=== PATIENT | male | born 1955 | race Caucasian/White ===

== ENCOUNTER 2020-01-12 17:38 | Observation (INO) | payer OTHER ==
[~2020-01-12] VITALS: Ht 170.2 cm; Wt 90.7 kg
[2020-01-12 17:40] VITALS: BP 129/79
[2020-01-12 17:41] VITALS: BP 129/79
[2020-01-12 18:32] LABS: BASOPHILS % (AUTO) 0.9 % (0.0-2.0); EOSINOPHILS # (AUTO) 0.1 K/uL (0-0.4); EOSINOPHILS % (AUTO) 3.3 % (0.0-4.0); HEMATOCRIT 25.5 % (36-52); HEMOGLOBIN 8.4 g/dL (12.0-18.0); LYMPHOCYTES # (AUTO) 0.4 K/uL (2.0-11.5); LYMPHOCYTES % (AUTO) 14.5 % (20.5-51.1); MEAN CORPUSCULAR HEMOGLOBIN 34 pg (27-31); MEAN CORPUSCULAR HGB CONC 33 g/dL (33-37); MEAN CORPUSCULAR VOLUME 103.8 fL (80-94); MONOCYTES # (AUTO) 0.2 K/uL (0.8-1.0); NEUTROPHILS # (AUTO) 2.4 K/uL (1.8-7.7); NEUTROPHILS % (AUTO) 76.3 % (42.2-75.2); PLATELET COUNT (AUTO) 164 K/uL (140-450); RED BLOOD CELL COUNT(AUTO) 2.45 MIL/uL (4.20-6.10); RED CELL DISTRIBUTION WIDTH 17.3 % (11.6-13.7); WHITE BLOOD COUNT (AUTO) 3.1 K/uL (4.8-10.8)
[2020-01-12] MEDS ORDERED: ACET-2619 GT (18:45)
[2020-01-12] MEDS ORDERED: KEP500L GT (18:45)
[2020-01-12] MEDS ORDERED: PRO5 GT (18:45)
[2020-01-12] MEDS ORDERED: [UNRECOGNIZED DRUG - CODE] GT (18:45)
[2020-01-12] MEDS ORDERED: CINA60TA1 GT (18:45)
[2020-01-12] MEDS ORDERED: TOP100 GT (18:45)
[2020-01-12] MEDS ORDERED: FOLI1TAB90 GT (18:47)
[2020-01-12] MEDS ORDERED: PHEN125S GT (18:47)
[2020-01-12 18:50] LABS: ALBUMIN 2.6 g/dL (3.4-5.0); ANION GAP 11.2 (8-16); CARBON DIOXIDE 30.2 mmol/L (21-32); CREATININE 1.7 mg/dL (0.6-1.3); POTASSIUM 3.4 mmol/L (3.5-5.1); TOTAL BILIRUBIN 0.5 mg/dL (0.0-1.0)
[2020-01-12] MEDS ORDERED: LISI5TAB18 GT (18:55)
[2020-01-12] MEDS ORDERED: ONDA4TAB GT (18:55)
[2020-01-12] MEDS ORDERED: OMEP20TC GT (18:55)
[2020-01-12] MEDS ORDERED: ERGO2000 GT (18:55)
[2020-01-12] MEDS ORDERED: POTA10TE30 GT (18:55)
[2020-01-12] MEDS ORDERED: VITA1TAB44 GT (18:55)
[2020-01-12] MEDS ORDERED: ALBU0.0912 IH (18:56)
[2020-01-12 18:57] LABS: PROTHROMBIN TIME 11.7 secs (10.8-13.4)
[2020-01-12 19:33] VITALS: BP 112/71
[2020-01-12] MEDS ORDERED: LACTATED RINGERS 1,000 ML IV SCH (20:27)
[2020-01-12] MEDS ORDERED: ONDANSETRON 4 MG/2 ML VIAL IVP PRN (20:30)
[2020-01-12] MEDS ORDERED: ALBUTEROL 0.083% 2.5 MG/3 ML NEBU INH PRN (20:30)
[2020-01-12] MEDS ORDERED: ACETAMINOPHEN 325 MG TAB PO PRN (20:30)
[2020-01-12] MEDS ORDERED: MORPHINE SULFATE 2 MG/ML SYR IVP PRN (20:30)
[2020-01-12] MEDS ORDERED: LORazepam 2 MG/ML VIAL IVP PRN (20:30)
[2020-01-12] MEDS ORDERED: POTASSIUM CHLORIDE 40 MEQ, LIDOCAINE MPF 1% 25 MG in NACL 0.9% 250 ML IV ONE (20:35)
[2020-01-12] MEDS ORDERED: PHENYTOIN GT SCH (21:00)
[2020-01-12 21:30] VITALS: BP 141/80
[2020-01-12] MEDS ORDERED: HYDRAGUARD CREAM TP PRN (22:35)
[2020-01-12] MEDS ORDERED: KCL 20 MEQ/WATER INJ PREMIX 200 ML IV ONE (22:35)
[2020-01-12] MEDS: LACTATED RINGERS 1,000 ML IV SCH (23:10)
[2020-01-12] MEDS: CINACALCET 30 MG TAB GT SCH (23:45)
[2020-01-12] MEDS: TOPIRAMATE 100 MG TAB GT SCH (23:45)
[2020-01-13] VITALS: BP 119/77
[2020-01-13 04:00] VITALS: BP 129/71
[2020-01-13 06:48] LABS: BASOPHILS # (AUTO) 0.1 K/uL (0.00-0.22); EOSINOPHILS # (AUTO) 0.1 K/uL (0-0.4); EOSINOPHILS % (AUTO) 1.7 % (0.0-4.0); HEMATOCRIT 24.3 % (36-52); LYMPHOCYTES # (AUTO) 0.4 K/uL (2.0-11.5); LYMPHOCYTES % (AUTO) 11.1 % (20.5-51.1); MEAN CORPUSCULAR HEMOGLOBIN 34 pg (27-31); MEAN CORPUSCULAR HGB CONC 33 g/dL (33-37); MEAN CORPUSCULAR VOLUME 103.9 fL (80-94); MONOCYTES # (AUTO) 0.2 K/uL (0.8-1.0); MONOCYTES % (AUTO) 5.5 % (1.7-9.3); NEUTROPHILS # (AUTO) 2.7 K/uL (1.8-7.7); NEUTROPHILS % (AUTO) 79.7 % (42.2-75.2); PLATELET COUNT (AUTO) 156 K/uL (140-450); RED BLOOD CELL COUNT(AUTO) 2.34 MIL/uL (4.20-6.10); RED CELL DISTRIBUTION WIDTH 17.1 % (11.6-13.7); WHITE BLOOD COUNT (AUTO) 3.4 K/uL (4.8-10.8)
[2020-01-13 07:14] LABS: ALBUMIN 2.5 g/dL (3.4-5.0); ANION GAP 11.6 (8-16); CARBON DIOXIDE 29.3 mmol/L (21-32); POTASSIUM 3.9 mmol/L (3.5-5.1); TOTAL BILIRUBIN 0.5 mg/dL (0.0-1.0)
[2020-01-13 08:00] VITALS: BP 143/76
[2020-01-13] MEDS ORDERED: levETIRAcetam 100 MG/ML ORASYR GT SCH (09:00)
[2020-01-13] MEDS: CINACALCET 30 MG TAB GT SCH (09:00)
[2020-01-13] MEDS ORDERED: ASPIRIN 81 MG TAB.CHEW PO SCH (09:00)
[2020-01-13] MEDS ORDERED: LANSOPRAZOLE 30 MG CAPDR GT SCH (09:00)
[2020-01-13] MEDS ORDERED: PHENYTOIN 100 MG/4 ML UDC GT SCH (09:00)
[2020-01-13] MEDS ORDERED: VIT-B COMP/VIT-C/FOLIC ACID 1 TAB GT SCH (09:00)
[2020-01-13] MEDS ORDERED: OMEPRAZOLE MAGNESIUM 20 MG GT SCH (09:00)
[2020-01-13] MEDS: TOPIRAMATE 100 MG TAB GT SCH (09:00)
[2020-01-13] MEDS: LACTATED RINGERS 1,000 ML IV SCH (11:05)
[2020-01-13 12:00] VITALS: BP 124/67
[2020-01-13 16:00] VITALS: BP 134/58
[2020-01-13 16:50] VITALS: BP 134/58
[2020-01-13] MEDS ORDERED: LISINOPRIL 5 MG TAB GT SCH (17:00)
[2020-01-14] MEDS ORDERED: MIDODRINE 5 MG TAB GT SCH (09:00)
[2020-01-16] MEDS ORDERED: NON-FORMULARY ITEM (Ergocalciferol (Vitamin D2) (Vitamin D2) 50,000 IU) GT SCH (09:00)
== END 2020-01-13 19:40 ==
LOC: MED 17:38 → MTU 20:32
PROVIDERS: ADMIT Internal Medicine Pulmonary Disease; ATTEND Internal Medicine Pulmonary Disease
DX: Z43.1 Encounter for attention to gastrostomy (principal); J96.11 Chronic respiratory failure with hypoxia; G93.40 Encephalopathy, unspecified; R13.10 Dysphagia, unspecified; N18.6 End stage renal disease; Z99.2 Dependence on renal dialysis; Z93.0 Tracheostomy status; Z79.82 Long term (current) use of aspirin; Z79.899 Other long term (current) drug therapy; Z88.8 Allergy status to other drugs, medicaments and biological substances
CPT/HCPCS: 36415; 49450; 71045; 74240; 80053; 83605; 83880; 84484; 85025; 85610; 85730; 87040; 87070; 87081; 87205; 93005; 94002; 94003; 96374; 99285; G0378; J2270; J3480; J7120; Q0092; 87186